=== PATIENT | female | born 1950 | race Two or more races ===

== ENCOUNTER 2019-06-22 08:11 | Day surgery (SDC) | payer MEDICARE ==
[~2019-06-22] VITALS: Ht 160 cm; Wt 71.9 kg
[~2019-06-22 08:11] MED LIST: AMLO10 PO; FAMO20 PO; Flovent 110 MCG12 GM INH; HYDCHL25 PO; Prinivil10 MG PO; Synthroid125 MCG PO; Zocor20 MG PO
--- NOTE | 2019-06-22 08:57 | NUR ---
Ambulatory in Day Surgery. Patient states colon prep results clear. History, Chart, Medications and Allergies reviewed before start of procedure. Lungs clear T/O to Auscultation. Patient confirms NPO status and agrees with scheduled surgery. Pre-Op teaching done. Pt verbalizes understanding. Patient States Post-Procedure ride home has been arranged.
--- NOTE | 2019-06-22 09:11 | NUR ---
06/22/19 0911 Kinga Morris PATIENT DETERMINED TO BE ASA APPROPRIATE FOR PROPOFOL SEDATION PRIOR TO START OF PROCEDURE BY DR. SANFORD. 3-LEAD EKG REVIEWED WITH PHYSICIAN PRIOR TO START OF PROCEDURE. PATIENT CONFIRMS NPO STATUS AND AGREES WITH SCHEDULED PROCEDURE. History, Chart, Medications and Allergies reviewed before start of procedure. MONITOR INTACT WITH CONTINUOUS PULSE OXIMETRY AND INTERMITTENT BP. O2 VIA N/C INTACT THROUGHOUT SEDATION/PROCEDURE VIA POM MASK 10 L AND END TIDAL CO2 INTAKE. HURRICAINE SPRAY TO OROPHARYX. Bite Block PlaceD IMMEDIATELY PRESEDATION.
--- NOTE | 2019-06-22 10:36 | NUR ---
1019 PT C/O SHARP CHEST PAIN 10/10 WITH DEEP BREATH VERY LITTLE SOB. EKG DONE PER DR. SANFORD. BP 94/43, HR 58. PT NORMALLY TAKES NTG SL FOR CP, BUT NO MED WAS GIVEN. 1030 EKG DONE. CP SUBSITED WITH MINIMAL CHEST PAIN, RADIATING UNDER RIGHT BREAST. LITTLE SOB WITH DEEP BREATH. 1033 DR SANFORD AT BEDSIDE, NO NEW ORDERS, DISCHARGE HOME PER
--- NOTE | 2019-06-22 11:15 | NUR ---
Patient up to Ambulate independently. Gait steady. Discharge instructions reviewed with patient. Patient verbalizes understanding. Copy given to patient to take home. Patient States Post-Procedure ride home has been arranged. Discharged via wheelchair to private car for ride home. HAS PAIN DISCOMFORT TO CHEST WITH DEEP BREATH WITH MILD SOB. INSTRUCTED TO GO TO ER IF CHEST PAIN GETS WORSE.
== END 2019-06-22 11:10 | disposition home or self-care (01) ==
LOC: ORSCMMR 08:11 → ORD 09:00 → ORSCMMR 09:00
PROVIDERS: Internal Medicine Gastroenterology
PROC: 0DB58ZX Excision of Esophagus, Via Natural or Artificial Opening Endoscopic, Diagnostic (ICD-10-PCS; principal; 2019-06-22 09:00)
PROC: 0DBK8ZX Excision of Ascending Colon, Via Natural or Artificial Opening Endoscopic, Diagnostic (ICD-10-PCS; principal; 2019-06-22 09:00)
PROC: 0DB48ZX Excision of Esophagogastric Junction, Via Natural or Artificial Opening Endoscopic, Diagnostic (ICD-10-PCS; principal; 2019-06-22 09:00)
PROC: 0DB68ZX Excision of Stomach, Via Natural or Artificial Opening Endoscopic, Diagnostic (ICD-10-PCS; principal; 2019-06-22 09:00)
DX: K21.9 Gastro-esophageal reflux disease without esophagitis (principal); Z86.010 Personal history of colon polyps; D12.2 Benign neoplasm of ascending colon; E03.9 Hypothyroidism, unspecified; I10 Essential (primary) hypertension; J44.9 Chronic obstructive pulmonary disease, unspecified; Z87.891 Personal history of nicotine dependence; Z79.899 Other long term (current) drug therapy
CPT/HCPCS: 88305; 88342; 93005; 93010; J2704; J7120

== ENCOUNTER 2021-12-07 18:58 | Emergency (ER) | payer MEDICARE ==
[~2021-12-07] VITALS: Ht 160 cm; Wt 70.8 kg
[2021-12-07 20:38] LABS: BASOPHILS ABSOLUTE AUTO 0.07 K/mm3 (0.00-0.23); BASOPHILS PERCENT AUTO 1 % (0-2); EOSINOPHILS PERCENT AUTO 4 % (0-6); Hematocrit 37.3 % (33.0-51.0); Hemoglobin 12.3 g/dL (11.5-16.0); IMMATURE GRAN ABSOLUTE AUTO 0.02 K/mm3 (0.00-0.10); IMMATURE GRAN PERCENT AUTO 0 % (0-1); LYMPHOCYTES ABSOLUTE AUTO 4.45 K/mm3 (0.84-5.20); LYMPHOCYTES PERCENT AUTO 47 % (21-46); MONOCYTES ABSOLUTE AUTO 0.75 K/mm3 (0.16-1.47); MONOCYTES PERCENT AUTO 8 % (4-13); Mean Corpuscular HGB 29.4 pg (26.0-34.0); Mean Corpuscular Volume 89 fL (80-100); Mean Platelet Volume 11.5 fL (9.1-12.4); NEUTROPHILS ABSOLUTE AUTO 3.77 K/mm3 (1.96-9.15); NEUTROPHILS PERCENT AUTO 40 % (41-73); Platelet Count 212 K/mm3 (150-400); RDW Coefficient Variation 12.2 % (11.7-14.2); RDW Standard Deviation 39.6 fL (35.1-46.3); Red Blood Cell Count 4.18 M/mm3 (3.80-5.20); White Blood Cell Count 9.46 K/mm3 (4.00-11.30)
[2021-12-07 21:00] LABS: Alanine Aminotransfer (ALT/SGP 39 U/L (12-78); Albumin, Blood 3.6 g/dL (3.4-5.0); Alk Phos 99 U/L (50-136); Anion Gap 10 mmol/L (6-16); Aspartate Aminotrans (AST/SGOT 36 U/L (12-37); Bilirubin, Total 0.2 mg/dL (0.1-1.0); Blood Urea Nitrogen 17 mg/dL (8-24); Bun/Creatinine Ratio 20.9 (12.0-20.0); CO2, Blood 25 mmol/L (21-32); Calcium, Blood 8.9 mg/dL (8.5-10.1); Chloride, Blood 104 mmol/L (98-108); Creatinine, Blood 0.81 mg/dL (0.40-1.00); Globulin, Blood 3.5 g/dL (2.2-4.0); Glomerular Filtration Rate >60 (60-); Glucose, Blood 160 mg/dL (70-99); Potassium, Blood 3.3 mmol/L (3.5-5.5); Sodium, Blood 139 mmol/L (136-145); Total Protein, Blood 7.1 g/dL (6.4-8.2); Troponin I <0.015 ng/mL (0.000-0.040)
[2021-12-07] MEDS ORDERED: Pepcid40 MG PO (22:26)
== END 2021-12-07 22:42 | disposition home or self-care (01) ==
LOC: ER 18:58
PROVIDERS: Emergency Medicine
DX: K20.90 Esophagitis, unspecified without bleeding (principal); R07.89 Other chest pain; E87.8 Other disorders of electrolyte and fluid balance, not elsewhere classified; I10 Essential (primary) hypertension; J44.9 Chronic obstructive pulmonary disease, unspecified; K21.9 Gastro-esophageal reflux disease without esophagitis; Z87.891 Personal history of nicotine dependence; Z79.899 Other long term (current) drug therapy
CPT/HCPCS: 36415; 71045; 80053; 83880; 84484; 85025; 93005; 93010; 96374; 99285-25; A9270; J7030

== ENCOUNTER 2021-12-13 11:53 | Emergency (ER) | payer MEDICARE ==
[~2021-12-13] VITALS: Ht 160 cm; Wt 71.2 kg
[~2021-12-13 11:53] MED LIST changes: +Pepcid40 MG PO
[2021-12-13 12:44] LABS: BASOPHILS ABSOLUTE AUTO 0.05 K/mm3 (0.00-0.23); BASOPHILS PERCENT AUTO 1 % (0-2); EOSINOPHILS ABSOLUTE AUTO 0.42 K/mm3 (0.00-0.68); EOSINOPHILS PERCENT AUTO 4 % (0-6); Hematocrit 42.3 % (33.0-51.0); Hemoglobin 13.9 g/dL (11.5-16.0); IMMATURE GRAN ABSOLUTE AUTO 0.02 K/mm3 (0.00-0.10); IMMATURE GRAN PERCENT AUTO 0 % (0-1); LYMPHOCYTES ABSOLUTE AUTO 2.85 K/mm3 (0.84-5.20); LYMPHOCYTES PERCENT AUTO 28 % (21-46); MONOCYTES ABSOLUTE AUTO 0.68 K/mm3 (0.16-1.47); MONOCYTES PERCENT AUTO 7 % (4-13); Mean Corpuscular HGB Conc 32.9 g/dL (31.5-36.5); Mean Corpuscular Volume 88 fL (80-100); Mean Platelet Volume 11.1 fL (9.1-12.4); NEUTROPHILS ABSOLUTE AUTO 6.29 K/mm3 (1.96-9.15); NEUTROPHILS PERCENT AUTO 61 % (41-73); Platelet Count 281 K/mm3 (150-400); RDW Standard Deviation 38.6 fL (35.1-46.3); White Blood Cell Count 10.31 K/mm3 (4.00-11.30)
[2021-12-13 13:11] LABS: Alanine Aminotransfer (ALT/SGP 39 U/L (12-78); Albumin, Blood 4.3 g/dL (3.4-5.0); Albumin/Globulin Ratio 1.1 (0.8-1.8); Alk Phos 110 U/L (50-136); Anion Gap 5 mmol/L (6-16); Aspartate Aminotrans (AST/SGOT 27 U/L (12-37); Bilirubin, Total 0.4 mg/dL (0.1-1.0); Blood Urea Nitrogen 14 mg/dL (8-24); CO2, Blood 32 mmol/L (21-32); Calcium, Blood 9.8 mg/dL (8.5-10.1); Chloride, Blood 101 mmol/L (98-108); Creatinine, Blood 0.87 mg/dL (0.40-1.00); Glomerular Filtration Rate >60 (60-); Glucose, Blood 122 mg/dL (70-99); Potassium, Blood 2.9 mmol/L (3.5-5.5); Sodium, Blood 138 mmol/L (136-145); Total Protein, Blood 8.3 g/dL (6.4-8.2)
[2021-12-13] MEDS ORDERED: POTCHL20ER PO (14:36)
== END 2021-12-13 15:45 | disposition home or self-care (01) ==
LOC: ER 11:53
PROVIDERS: Physician Assistant
DX: I10 Essential (primary) hypertension (principal); E87.6 Hypokalemia; J44.9 Chronic obstructive pulmonary disease, unspecified; K21.9 Gastro-esophageal reflux disease without esophagitis; Z87.891 Personal history of nicotine dependence
CPT/HCPCS: 36415; 80053; 84484; 85025; 93005; 93010; 99284-25; A9270

== ENCOUNTER → 2022-03-01 | Outpatient (CLI) | payer MEDICARE ==
[~2022-03-01] MED LIST changes: +POTCHL20ER PO
== END | disposition home or self-care (01) ==
LOC: LAB 13:30 → LAB SHORT 13:30
DX: R30.9 Painful micturition, unspecified (principal)
CPT/HCPCS: 87077; 87086; 87186

== ENCOUNTER → 2023-11-15 | Outpatient (CLI) | payer MEDICARE ==
[2023-11-15 13:02] LABS: BASOPHILS ABSOLUTE AUTO 0.06 K/mm3 (0.00-0.23); BASOPHILS PERCENT AUTO 0 % (0-2); EOSINOPHILS ABSOLUTE AUTO 0.19 K/mm3 (0.00-0.68); EOSINOPHILS PERCENT AUTO 1 % (0-6); Hematocrit 41.1 % (33.0-51.0); Hemoglobin 13.4 g/dL (11.5-16.0); IMMATURE GRAN ABSOLUTE AUTO 0.06 K/mm3 (0.00-0.10); IMMATURE GRAN PERCENT AUTO 0 % (0-1); LYMPHOCYTES ABSOLUTE AUTO 2.08 K/mm3 (0.84-5.20); LYMPHOCYTES PERCENT AUTO 14 % (21-46); MONOCYTES ABSOLUTE AUTO 0.89 K/mm3 (0.16-1.47); MONOCYTES PERCENT AUTO 6 % (4-13); Mean Corpuscular HGB Conc 32.6 g/dL (31.5-36.5); Mean Corpuscular Volume 92 fL (80-100); NEUTROPHILS ABSOLUTE AUTO 11.96 K/mm3 (1.96-9.15); NEUTROPHILS PERCENT AUTO 79 % (41-73); Platelet Count 276 K/mm3 (150-400); RDW Coefficient Variation 12.2 % (11.7-14.2); RDW Standard Deviation 40.8 fL (35.1-46.3); Red Blood Cell Count 4.47 M/mm3 (3.80-5.20); White Blood Cell Count 15.24 K/mm3 (4.00-11.30)
[2023-11-15 13:14] LABS: Bilirubin, Total 0.4 mg/dL (0.1-1.0); Bun/Creatinine Ratio 22.8 (12.0-20.0); Calcium, Blood 9.4 mg/dL (8.5-10.1); Creatinine, Blood 0.92 mg/dL (0.40-1.00); Globulin, Blood 3.9 g/dL (2.2-4.0); Potassium, Blood 3.9 mmol/L (3.5-5.5); Total Protein, Blood 7.9 g/dL (6.4-8.2)
== END | disposition home or self-care (01) ==
LOC: LAB SHORT 12:57 → LAB 12:57
PROVIDERS: Emergency Medicine
DX: R07.9 Chest pain, unspecified (principal)
CPT/HCPCS: 80053; 83690; 83880; 84484; 85025; 85379

== ENCOUNTER 2024-03-01 08:52 | Day surgery (SDC) | payer MEDICARE ==
[~2024-03-01 08:52] MED LIST changes: +FLOVENT 110 MCG INH; -Flovent 110 MCG12 GM INH
[2024-03-08] MEDS ORDERED: ALBU2.5V5 INH (16:21)
[2024-03-11] MEDS ORDERED: PANT40 (09:47)
[2024-03-11] MEDS ORDERED: SPIR25 PO (09:49)
[2024-03-11] MEDS ORDERED: LEVSOD100 PO (09:50)
[2024-03-25] MEDS ORDERED: AMLO5 PO (07:29)
[2024-03-25] MEDS ORDERED: Bentyl20 MG PO (07:29)
[2024-03-25] MEDS ORDERED: LOSA25 PO (07:31)
[2024-03-25] MEDS ORDERED: NITR.4SL SL (07:31)
== END 2024-03-25 22:44 | disposition home or self-care (01) ==
LOC: MOI US 08:52
DX: C50.812 Malignant neoplasm of overlapping sites of left female breast (principal); Z17.0 Estrogen receptor positive status [ER+]
CPT/HCPCS: 19285; 77065; A4648

== ENCOUNTER 2024-03-11 08:44 | Day surgery (SDC) | payer MEDICARE ==
[2024-03-11] VITALS (14 sets, daily range): BP systolic 111–166; BP diastolic 56–93
[~2024-03-11] VITALS: Ht 160 cm; Wt 71.2 kg
[~2024-03-11 08:44] MED LIST changes: +ALBU2.5V5 INH
[2024-03-11] MEDS ORDERED: CeFAZolin Sodium 2,000 MG in NS 100 ML IV SCH (09:40)
[2024-03-11] MEDS ORDERED: Lactated Ringer's 1,000 ML IV SCH (09:40)
[2024-03-11] MEDS ORDERED: PANT40 (09:47)
[2024-03-11] MEDS ORDERED: SPIR25 PO (09:49)
[2024-03-11] MEDS ORDERED: LEVSOD100 PO (09:50)
[2024-03-11] MEDS ORDERED: Methylene Blue 1% 100 MG/10 ML VIAL ONE (10:08)
[2024-03-11] MEDS ORDERED: Bupivacaine 0.5% HCl 5 MG/ML 30MLVIAL ONE (10:09)
[2024-03-11] MEDS ORDERED: propofoL 20 ML IV ONE (10:36)
[2024-03-11] MEDS ORDERED: FentaNYL Citrate 50 MCG/ML 2 ML Injection ONE ×3 (10:42→12:31)
[2024-03-11] MEDS ORDERED: Glycopyrrolate 0.2 MG/ML 5ML VIAL ONE (10:51)
[2024-03-11] MEDS ORDERED: Metoclopramide HCl 5MG / ML 2ML Vial ONE (11:08)
[2024-03-11] MEDS ORDERED: Ondansetron HCl 2 MG / ML 2ML Vial ONE (11:08)
[2024-03-11] MEDS ORDERED: HYDROcodone 5-APAP 325 TAB PO PRN (12:30)
[2024-03-11] MEDS ORDERED: HYDROmorphone HCl/Pf 1MG SYR ONE (12:39)
--- NOTE | 2024-03-11 13:14 | NUR ---
PT TO DAY SURGERY STEP DOWN FROM PACU. BEDSIDE REPORT RECEIVED. PT IS AWAKE, ALERT AND ORIENTED; ABLE TO MOVE SELF IN BED. VSS. PT REQUESTING YOGURT AND PO FLUIDS. PT HAS EXOFIN AND STERI STRIP COVERED IN GUAZE AND IS C/D/I, PT HAS BREAST BINDER IN PLACE. PAIN 01/31.
--- NOTE | 2024-03-11 13:27 | NUR ---
PT TOLERATING YOGURT AND PO FLUIDS WELL.
--- NOTE | 2024-03-11 13:52 | NUR ---
Discharge instructions reviewed with patient. Patient verbalizes understanding. Copy given to patient to take home. Patient States Post-Procedure ride home has been arranged.
--- NOTE | 2024-03-11 14:00 | NUR ---
Patient up to Ambulate independently. Gait steady. PT HAS ICE PACK TO TAKE HOME.
--- NOTE | 2024-03-11 14:08 | NUR ---
Discharged via wheelchair to private car for ride home.
== END 2024-03-11 14:09 | disposition home or self-care (01) ==
LOC: NM 08:44 → ORSCMMR 08:44 → NM 09:00
PROVIDERS: Surgery
PROC: 0HBU0ZZ Excision of Left Breast, Open Approach (ICD-10-PCS; principal; 2024-03-11 10:30)
PROC: 07B60ZX Excision of Left Axillary Lymphatic, Open Approach, Diagnostic (ICD-10-PCS; principal; 2024-03-11 10:30)
DX: C50.812 Malignant neoplasm of overlapping sites of left female breast (principal); Z17.0 Estrogen receptor positive status [ER+]; C77.3 Secondary and unspecified malignant neoplasm of axilla and upper limb lymph nodes; I10 Essential (primary) hypertension; J44.9 Chronic obstructive pulmonary disease, unspecified; Z87.891 Personal history of nicotine dependence; E03.9 Hypothyroidism, unspecified; Z79.899 Other long term (current) drug therapy
CPT/HCPCS: 38792; 76098; 82947; 88307; 88342; A9270; A9520; J0690; J1170; J2405; J2704; J2765; J3010; J7120; Q9968

== ENCOUNTER 2024-03-25 06:50 | Day surgery (SDC) | payer MEDICARE ==
[~2024-03-25] VITALS: Ht 160 cm; Wt 70.6 kg
[~2024-03-25 06:50] MED LIST changes: +LEVSOD100 PO; +PANT40; +SPIR25 PO
[2024-03-25] MEDS ORDERED: NS 50 ML IV ONE (07:05)
[2024-03-25] MEDS ORDERED: CeFAZolin Sodium 2,000 MG VIAL ONE (07:05)
[2024-03-25] MEDS ORDERED: Ropivacaine 0.5% HCl/Pf 5 MG/ML 20ML VIAL ONE (07:24)
[2024-03-25] MEDS ORDERED: Lidocaine HCl/Pf 1% 5 ML VIAL ONE (07:25)
[2024-03-25] MEDS ORDERED: Lactated Ringer's 1,000 ML IV ONE (07:27)
[2024-03-25] MEDS ORDERED: Bentyl20 MG PO (07:29)
[2024-03-25] MEDS ORDERED: AMLO5 PO (07:29)
[2024-03-25] MEDS ORDERED: NITR.4SL SL (07:31)
[2024-03-25] MEDS ORDERED: LOSA25 PO (07:31)
[2024-03-25] MEDS ORDERED: propofoL 20 ML IV ONE (07:59)
[2024-03-25] MEDS ORDERED: FentaNYL Citrate 50 MCG/ML 2 ML Injection ONE ×2 (07:59→09:07)
[2024-03-25] MEDS ORDERED: Ketorolac Tromethamine 30mg Vial ONE (08:02)
[2024-03-25] MEDS ORDERED: Dexamethasone Sod Phos 10 MG/ML 1ML VIAL ONE (08:02)
[2024-03-25] MEDS ORDERED: Ondansetron HCl 2 MG / ML 2ML Vial ONE (08:02)
[2024-03-25 09:33] VITALS: BP 147/63
--- NOTE | 2024-03-25 09:38 | NUR ---
03/25/24 0938 RYAN BOYCE PT VERY TALKATIVE AND PLEASANT. DRINKING WO DIFFICULTY.
[2024-03-25] MEDS ORDERED: HYDROcodone 5-APAP 325 TAB ONE (09:54)
== END 2024-03-25 10:27 | disposition home or self-care (01) ==
LOC: ORSCSDS 06:50
PROVIDERS: Surgery
PROC: 0HBU0ZZ Excision of Left Breast, Open Approach (ICD-10-PCS; principal; 2024-03-25 08:00)
DX: C50.812 Malignant neoplasm of overlapping sites of left female breast (principal); Z17.0 Estrogen receptor positive status [ER+]; I10 Essential (primary) hypertension; J44.9 Chronic obstructive pulmonary disease, unspecified; E03.9 Hypothyroidism, unspecified; K21.9 Gastro-esophageal reflux disease without esophagitis; Z87.891 Personal history of nicotine dependence; Z79.899 Other long term (current) drug therapy
CPT/HCPCS: 88307; A9270; J0690; J1100; J1885; J2001; J2405; J2704; J2795; J3010

== ENCOUNTER 2025-05-27 12:20 | Emergency (ER) | payer MEDICARE ==
[~2025-05-27] VITALS: Ht 162.6 cm; Wt 70.8 kg
[~2025-05-27 12:20] MED LIST changes: +AMLO5 PO; +Bentyl20 MG PO; +LOSA25 PO; +NITR.4SL SL
[2025-05-27 12:28] VITALS: BP 143/90
[2025-05-27 13:19] LABS: BASOPHILS ABSOLUTE AUTO 0.07 K/mm3 (0.00-0.23); BASOPHILS PERCENT AUTO 1 % (0-2); EOSINOPHILS ABSOLUTE AUTO 0.37 K/mm3 (0.00-0.68); EOSINOPHILS PERCENT AUTO 4 % (0-6); Hematocrit 39.0 % (33.0-51.0); Hemoglobin 12.5 g/dL (11.5-16.0); IMMATURE GRAN ABSOLUTE AUTO 0.04 K/mm3 (0.00-0.10); IMMATURE GRAN PERCENT AUTO 1 % (0-1); LYMPHOCYTES ABSOLUTE AUTO 2.71 K/mm3 (0.84-5.20); LYMPHOCYTES PERCENT AUTO 31 % (21-46); MONOCYTES ABSOLUTE AUTO 0.45 K/mm3 (0.16-1.47); MONOCYTES PERCENT AUTO 5 % (4-13); Mean Corpuscular HGB Conc 32.1 g/dL (31.5-36.5); Mean Corpuscular Volume 92 fL (80-100); NEUTROPHILS ABSOLUTE AUTO 5.08 K/mm3 (1.96-9.15); NEUTROPHILS PERCENT AUTO 58 % (41-73); NRBC ABSOLUTE 0.00 K/mm3 (0.00-0.02); NRBC Auto 0.0 /100 WBC (0.0-0.2); Platelet Count 218 K/mm3 (150-400); RDW Coefficient Variation 12.7 % (11.7-14.2); RDW Standard Deviation 42.5 fL (35.1-46.3)
[2025-05-27 13:45] LABS: Alanine Aminotransfer (ALT/SGP 35.0 U/L (12-78); Albumin, Blood 4.1 g/dL (3.4-5.0); Albumin/Globulin Ratio 1.2 (0.8-1.8); Anion Gap 6.0 mmol/L (3-11); Aspartate Aminotrans (AST/SGOT 24.0 U/L (12-37); Bilirubin, Total 0.5 mg/dL (0.1-1.0); Blood Urea Nitrogen 18.0 mg/dL (8-24); CO2, Blood 29.0 mmol/L (21-32); Calcium, Blood 9.0 mg/dL (8.5-10.1); Chloride, Blood 106.0 mmol/L (98-108); Creatinine, Blood 1.03 mg/dL (0.40-1.00); Globulin, Blood 3.3 g/dL (2.2-4.0); Glucose, Blood 139.0 mg/dL (70-99); Potassium, Blood 3.9 mmol/L (3.5-5.5); Sodium, Blood 137.0 mmol/L (136-145); Total Protein, Blood 7.4 g/dL (6.4-8.2)
== END 2025-05-29 14:15 | disposition left against medical advice (07) ==
LOC: ER 12:20
PROVIDERS: Physician Assistant
DX: R07.81 Pleurodynia (principal); Z53.29 Procedure and treatment not carried out because of patient's decision for other reasons
CPT/HCPCS: 71046; 80053; 83690; 84484; 85025; 93005; 93010; 99282-25